=== PATIENT | male | born 1975 | race Two or more races ===

== ENCOUNTER 2025-04-16 22:55 | Emergency (ER) | payer MEDICAID, OTHER ==
[~2025-04-16] VITALS: Ht 185.4 cm; Wt 99.0 kg
--- NOTE | 2025-04-16 23:27 | ECG ---
[facility] Test Date: 2025-04-16 Test Time: 23:10:41 Pat Name: MILLY JUSTICE Department: [facility] ED Patient ID: [id number] Room: Gender: M Plumbing Technician: : [id number] Requested By: EMERGENCY EMERGENCY Order Number: [id number] Reading MD: Alphonse Galarza Measurements Intervals [place] Rate: 66 P: 41 DE: 177 QRS: 18 QRSD: 83 T: 5 QT: 421 QTc: 442 Interpretive Statements Sinus rhythm Nonspecific T abnormalities, diffuse leads Electronically Signed On 04-19-2025 15:43:06 PST by Alphonse Galarza Please click the below link to view image of tracing.
[2025-04-16 23:45] VITALS: PULSE 68; RESP 18; TEMP 98.3; O2SAT 98
[2025-04-17 00:51] LABS: Hematocrit 43.6 % (41.0-53.0); Hemoglobin 15.0 g/dL (13.5-17.5); Mean Corpuscular Hemoglobin 29.8 pg (28.0-32.0); Mean Corpuscular Volume 86.7 fL (80.0-100.0); Nucleated Red Blood Cells % 0.1 %
[2025-04-17 01:00] LABS: Chloride 103 mmol/L (98-107); Potassium 3.8 mmol/L (3.5-5.1); Sodium 143 mmol/L (136-145)
[2025-04-17 01:01] LABS: Anion Gap 12 (5-15); Calcium 9.2 mg/dL (8.7-10.4); Carbon Dioxide 28 mmol/L (20-31)
[2025-04-17 01:06] LABS: BUN/Creatinine Ratio 6.8 (10.0-20.0); Blood Urea Nitrogen 10 mg/dL (9-23)
--- NOTE | 2025-04-17 01:14 | DVH ---
EXAM: CT HEAD WITHOUT CONTRAST INDICATION: syncope TECHNIQUE: CT of the head without intravenous contrast. Radiation Dose : 1. Head: CT Dose: CTDI volume is 63.22 mGy. Dose-length product is 1013.27 mGy*cm The dose indicators for CT are the volume Computed Tomography (CT) Dose Index (CTDIvol) and the Dose Length Product (DLP), and are measured in units of mGy and mGy-cm, respectively. These indicators are not patient dose, but values generated from the CT scanner acquisition factors. The report includes radiation exposure data for exposures received during this examination. COMPARISON: None FINDINGS: There is no evidence of acute intracranial hemorrhage, extra-axial collection, mass effect, midline shift, herniation or hydrocephalus. The ventricles, sulci and cisterns are age appropriate. The garrido-white differentiation is intact. Patchy periventricular and subcortical white matter hypoattenuation is nonspecific but may be related to small vessel ischemic disease. The visualized paranasal sinuses and mastoid air cells are clear. The surrounding soft tissues and osseous structures are unremarkable. IMPRESSION: 1. No acute intracranial abnormality. Radiation optimization: All CT scans at this facility use at least one of these dose optimization techniques: automated exposure control mA and/or kV adjustment per patient size (includes targeted exams where dose is matched to clinical indication) or iterative reconstruction.
[2025-04-17 01:16] LABS: Glucose 110 mg/dL (74-106)
[2025-04-17] MEDS: KETOROLAC TROMETH 30 MG/ML 1ML VIAL IV ONE ×2 (01:37→01:41)
[2025-04-17] MEDS: SODIUM CHLORIDE 0.9% 1,000 ML IV ONE (01:41)
--- NOTE | 2025-04-17 01:42 | DVH ---
CHEST RADIOGRAPH Indication: sob Technique: Single frontal view of the chest was obtained Comparison: None FINDINGS/IMPRESSION: The lungs are clear. The cardiomediastinal silhouette is mildly prominent, likely accentuated by technique. No pleural effusion or pneumothorax. No acute osseous abnormality.
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
[2025-04-17 02:52] VITALS: BP 114/57; PULSE 68; RESP 18; O2SAT 98
== END 2025-04-17 02:58 | disposition home or self-care (01) ==
LOC: EDBD 22:55 → ER 22:55
DX: R55 Syncope and collapse (principal); I10 Essential (primary) hypertension
CPT/HCPCS: 36415; 70450; 71045; 80048; 84484; 85025; 93005; 96361; 96374; 99285; J1885; J7030